=== PATIENT | male | born 1990 | race Caucasian/White ===

== ENCOUNTER 2018-01-05 07:26 | Emergency (ER) | payer OTHER ==
[2018-01-05 07:30] VITALS: BP 153/99; PULSE 95; RESP 18; TEMP 98.4
[2018-01-05] MEDS ORDERED: LIDOCAINE 1% INJ 10MG/ML (20 ML MDV) SQ STA (07:33)
[2018-01-05] MEDS ORDERED: DIPH,PERTUS(ACELL)TETVAC-LF 0.5 ML VIAL IM ONE (07:40)
--- NOTE | 2018-01-05 07:57 | ED ---
General Adult HPI - General Chief complaint: Wound/Laceration Stated complaint: arm lac Time Seen by Provider: 01/05/18 07:31 Source: patient, RN notes reviewed Mode of arrival: ambulatory Limitations: no limitations - History of Present Illness Initial comments: Patient 27-year-old male presenting to the emergency room today with a chief complaint of laceration to the left forearm. Patient states that he was walking out of his closet where there is a metal bar which caught his arm causes laceration. Patient states unsure of his tetanus status. Patient denies any other concerns or symptoms. Patient denies any recent fever, chills, shortness of breath, chest pain, back pain, abdominal pain, nausea or vomiting, numbness or tingling, or any other complaints. - Related Data Previous Rx's Medication Instructions Recorded Ciprofloxacin HCl 500 mg PO BID #14 tablet 03/25/17 metroNIDAZOLE [Flagyl] 500 mg PO Q8HR #20 tab 03/25/17 Allergies Allergy/AdvReac Type Severity Reaction Status Date / Time hydromorphone [From Dilaudid] Allergy Rash/Hives Verified 01/05/18 07:30 Review of Systems ROS Statement: Those systems with pertinent positive or pertinent negative responses have been documented in the HPI. ROS Other: All systems not noted in ROS Statement are negative. Past Medical History Past Medical History: No Reported History Additional Past Medical History / Comment(s): pyloric stenosis History of Any Multi-Drug Resistant Organisms: MRSA Date of last positivie culture/infection: 2011 MDRO Source:: Left arm, Left leg Past Surgical History: No Surgical Hx Reported Past Psychological History: No Psychological Hx Reported Smoking Status: Current every day smoker Past Alcohol Use History: Occasional Past Drug Use History: Marijuana - Past Family History Father History Unknown: Yes Mother Additional Family Medical History / Comment(s): from lung cancer Sister(s) Additional Family Medical History / Comment(s): born with "insides outside of body" General Exam - General Exam Comments Initial Comments: General: The patient is awake and alert, in no distress, and does not appear acutely ill. Neck: The neck is supple, there is no tenderness or JVD. Musculoskeletal: Full range of motion. Sensation intact. Radial pulses 2+. Strength 5/5. Neurological: A&O x 3. CN II-XII intact, There are no obvious motor or sensory deficits. Coordination appears grossly intact. Speech is normal. Skin: 2 cm linear laceration running horizontally to the mid left forearm. No active bleeding. Psychiatric: Normal mood and affect. Limitations: no limitations Course Vital Signs 01/05/18 07:27 Temperature 98.4 F Pulse Rate 95 Respiratory 18 Rate Blood Pressure 153/99 O2 Sat by Pulse 100 Oximetry Procedures - Procedures Initial comment: 2 cm linear laceration running horizontally to the left forearm The skin was anesthetized with 1% lidocaine. The laceration was then cleansed with and irrigated with normal saline. The wound was inspected, and there was no evidence of injury to deep structures. No foreign body was noted in the wound. A total of 5 skin sutures were placed utilizing 4-0 nylon. Medical Decision Making - Medical Decision Making Patient's laceration was prepped and cleaned and sutured here in the emergency room. Patient's tetanus updated. Patient advised watch for signs of infection return in 8-10 days to have sutures removed. Disposition Clinical Impression: Laceration Disposition: HOME SELF-CARE Condition: Good Instructions: Laceration (DC) Additional Instructions: Please return to the emergency room in 8-10 days to have sutures removed. Please watch for any signs of infection which may include increased pain, swelling, redness, fever or chills. Please return to emergency room for any signs of infection do occur. Please use clean soap and water over the area to prevent scabbing over your stitches. Please leave wound covered for the first 24-48 hours and then leave wound open to air. Please return to the emergency room for any other concerns. Is patient prescribed a controlled substance at d/c from ED?: No Referrals: None,Stated [Primary Care Provider] - 1-2 days Time of Disposition: 07:58
== END 2018-01-05 08:08 | disposition home or self-care (01) ==
LOC: EC 07:26
DX: S51.812A Laceration without foreign body of left forearm, initial encounter (principal); Z23 Encounter for immunization; F17.200 Nicotine dependence, unspecified, uncomplicated; Z88.5 Allergy status to narcotic agent; W26.9XXA Contact with unspecified sharp object(s), initial encounter; Y93.01 Activity, walking, marching and hiking
CPT/HCPCS: 90715; 99282; 12001; 90471; J2001